=== PATIENT | female | born 1970 | race Caucasian/White ===

== ENCOUNTER 2017-08-01 17:24 | Emergency (ER) | payer BC ==
[2017-08-01] MEDS ORDERED: AMOX TR/POTASSIUM CLAVULANATE 875 MG TABLET PO ONE (19:15)
--- NOTE | 2017-08-01 19:16 | ERNOTE ---
Lower Extremity HPI - Narrative Date of Service: 08/01/17 - General Lower Extremities Pain: other: left - calf Time Seen by Provider: 08/01/17 18:13 Source: patient Exam Limitations: no limitations - Immun/Allergies/Home Medications Immunizations: IMMUNIZATION HX Immunizations Up to Date Yes History of Influenza Vaccine No Hx Pneumococcal Vaccination No Allergies/Adverse Reactions: Allergies Allergy/AdvReac Type Severity Reaction Status Date / Time No Known Allergies Allergy Verified 08/01/17 17:59 Home Medications: HOME MEDICATIONS Amox Tr/Potassium Clavulanate [Augmentin 875-125 Tablet] 875 mg PO Q12H #20 tab 08/01/17 [Last Taken Unknown] - History of Present Illness Narrative: Pt. comes in with c/o post L calf bite after she got in between her dogs when they were playing. Pt. states that her dogs are up to date on their vaccines and pt. states that she had her last tetanus vaccine less than 5 years ago. Pt. denies any fever or aggravating factors but states that pressure stopped the bleeding. Review of Systems - Review of Systems Constitutional: Present: no symptoms reported. Absent: recent illness, fever, chills, weakness, fatigue EYE: Present: no symptoms reported ENT: Present: no symptoms reported Respiratory: Present: no symptoms reported. Absent: shortness of breath, cough , wheezing Cardiology: Present: no symptoms reported. Absent: chest pain, palpitations, edema Skin: Present: other - laceration L post calf All Other Systems: All systems neg except as marked - Patient's Past Medical History Patient History - Medical: No pertinent hx Patient History - Cardiac/Respiratory: No pertinent hx Patient History - Cancer: No Hx of Cancer Patient History - Surgical Procedures: No surgical history Patient History - Other: None LMP (females 10-50): now - Social History Living Situations: home Abuse History: No History of abuse Psych History: No pertinent hx Smoking Status: Never smoker Alcohol Use: occasionally Drug Use: none - Immunizations Immunizations Up to Date: Yes Hx Pneumococcal Vaccination: No History of Influenza Vaccine: No Physical Exam - Physical Exam General Appearance: Present: wd/wn, alert, no apparent distress Head Exam: Present: normal inspection, no evidence of injury Eye Exam: Normal inspection: bilateral, PERRL: bilateral, EOMI: bilateral Respiratory: Present: no respiratory distress, normal breath sounds, no accessory muscle use, chest nontender, lungs clear Cardiovascular/Chest: Present: regular rate, rhythm, no murmur, normal peripheral pulses Extremity Exam: Present: normal range of motion, no edema, other - bruising and edema surrounding 3cm laceration L post calf open not approximated Neurological Exam: Present: alert, oriented, normal mood/affect, no motor/ sensory deficits Skin Exam: Present: warm/dry, other - bruising and edema surrounding 3cm laceration L post calf open not approximated ED Progress - Vital Signs Patient's Vital Signs:: I have reviewed the patient's vital signs. Vital Signs: Vital Signs 08/01/17 18:00 Pulse Rate 116 H Respiratory 16 Rate Blood Pressure 177/96 O2 Sat by Pulse 99 Oximetry - Progress/Reassessment Chief Complaint: Lower Extremity Pain/ Injury Procedures Left Posterior Calf Anesthesia: 1% Lidocaine I & D Prep: betadine prep, sterile drapes applied, sterile dressing applied Wound's Depth/Shape: into subcutaneous, linear Wound Explored: clean, in bloodless field, no foreign body Wound Intervention: irrigated w/saline, debrided minimal Distal NVT: neuro/vasc intact, no tendon injury Wound Repaired With: sutures Suture Size/Type: 4-0 Number of Sutures: 3 Layer Closure: Simple Wound Dressing: sterile dressing applied Complications: Pt albert procedure well Departure Clinical Impression: Laceration - Departure Disposition: Home self-care Condition: Good Instructions: Laceration Care, Adult, Lour-im-Wize Additional Instructions: Please continue antibiotics until finished and follow up with primary provider in 7-10 days for suture removal. Prescriptions: Amox Tr/Potassium Clavulanate [Augmentin 875-125 Tablet] 875 mg PO Q12H #20 tab
[2017-08-01] MEDS ORDERED: AMOX TR/POTASSIUM CLAVULANATE 875 MG TABLET ONE (19:17)
[2017-08-01 19:22] VITALS: BP 165/106
== END 2017-08-01 19:23 | disposition home or self-care (01) ==
LOC: ER 17:24
PROC: 0JQP0ZZ Repair Left Lower Leg Subcutaneous Tissue and Fascia, Open Approach (ICD-10-PCS; principal; 2017-08-01)
DX: S81.812A Laceration without foreign body, left lower leg, initial encounter (principal); W54.0XXA Bitten by dog, initial encounter